=== PATIENT | male | born 1945 | race Caucasian/White ===

== ENCOUNTER 2022-10-22 13:34 | Outpatient (OUT) | payer MEDICARE, SELFPAY ==
[2022-10-22 16:34] LABS: Anion Gap 12.5; BUN Creatinine Ratio 24.2; Calcium 9.2 mg/dL (8.5-10.1); Carbon Dioxide 32.3 mmol/L (21.0-32.0); Chloride 92 mmol/L (98-107); Estimated GFR (African America 24 (>=60); Estimated GFR (Non-African Ame 20 (>=60); Glucose 318 mg/dL (74-106); Potassium 3.8 mmol/L (3.5-5.1); Sodium 133 mmol/L (136-145)
== END 2022-10-22 13:35 | disposition home or self-care (01) ==
DX: N18.4 Chronic kidney disease, stage 4 (severe) (principal)
CPT/HCPCS: 36415; 80048

== ENCOUNTER 2022-11-03 13:05 | Outpatient (REF) | payer MEDICARE, SELFPAY ==
[2022-11-03 13:52] LABS: Bilirubin Urine NEGATIVE (NEGATIVE); Blood Urine NEGATIVE (NEGATIVE); Clarity Urine CLEAR (CLEAR); Color Urine LT. YELLOW (YELLOW); Glucose Urine UA 250 mg/dL (NEGATIVE); Ketones Urine NEGATIVE (NEGATIVE); Leukocyte Esterase Urine NEGATIVE (NEGATIVE); Nitrite Urine NEGATIVE (NEGATIVE); Protein Urine NEGATIVE (NEG/TRACE); Urobilinogen Urine 0.2 EU/dL (0.2-1.0); pH Urine 5.5 (5.0-9.0)
[2022-11-03 13:58] LABS: Creatinine Urine Random 21.04 mg/dL (20.00-300.00); Protein Creatinine Ratio Urine 0.31; Total Protein Urine Random 6.6 mg/dL (<=11.9)
[2022-11-03 13:59] LABS: Hematocrit 46.9 % (42.0-54.0); Hemoglobin 16.1 g/dL (14.0-18.0)
[2022-11-03 14:38] LABS: WBC Urine NONE SEEN #/HPF (NONE SEEN)
[2022-11-03 14:39] LABS: Bacteria Urine NONE SEEN #/HPF (NONE SEEN); Mucus Urine NONE SEEN (NONE SEEN); RBC Urine NONE SEEN #/HPF (0-2); Squamous Epithelial Cell Urine FEW #/LPF (NONE/RARE)
[2022-11-03 14:48] LABS: Albumin Level 3.4 g/dL (3.4-5.0); Anion Gap 10.3; BUN Creatinine Ratio 33.8; Calcium 9.2 mg/dL (8.5-10.1); Carbon Dioxide 41.4 mmol/L (21.0-32.0); Estimated GFR (African America 24 (>=60); Estimated GFR (Non-African Ame 20 (>=60); Glucose 375 mg/dL (74-106); Percent Iron Saturation 20.9 %; Phosphorus 4.9 mg/dL (2.6-4.7); Sodium 132 mmol/L (136-145); Uric Acid 16.4 mg/dL (3.5-7.2)
[2022-11-03 14:56] LABS: Potassium 2.7 mmol/L (3.5-5.1)
[2022-11-03 14:57] LABS: Chloride 83 mmol/L (98-107); Magnesium 3.4 mg/dL (1.8-2.4)
[2022-11-04 10:09] LABS: PTH, Intact 75 pg/mL (15-65)
== END 2022-11-03 13:06 | disposition home or self-care (01) ==
LOC: LAB 13:05
PROVIDERS: Visit Provider Internal Medicine
DX: I12.9 Hypertensive chronic kidney disease with stage 1 through stage 4 chronic kidney disease, or unspecified chronic kidney disease (principal); E11.22 Type 2 diabetes mellitus with diabetic chronic kidney disease; D63.1 Anemia in chronic kidney disease; N18.4 Chronic kidney disease, stage 4 (severe); I50.22 Chronic systolic (congestive) heart failure; N25.81 Secondary hyperparathyroidism of renal origin; E83.42 Hypomagnesemia
CPT/HCPCS: 36415; 80069; 81001; 82306; 82570; 82607; 82728; 82746; 83540; 83550; 83735; 83970; 84156; 84550; 85014; 85018

== ENCOUNTER 2022-11-14 17:27 | Outpatient (REF) | payer MEDICARE, SELFPAY ==
[2022-11-14 18:53] LABS: Anion Gap 13.9; BUN Creatinine Ratio 16.7; Calcium 9.4 mg/dL (8.5-10.1); Carbon Dioxide 24.8 mmol/L (21.0-32.0); Chloride 102 mmol/L (98-107); Estimated GFR (African America 33 (>=60); Estimated GFR (Non-African Ame 27 (>=60); Glucose 293 mg/dL (74-106); Potassium 4.7 mmol/L (3.5-5.1); Sodium 136 mmol/L (136-145)
== END 2022-11-14 17:28 | disposition home or self-care (01) ==
LOC: LAB 17:27
PROVIDERS: Visit Provider Internal Medicine
DX: E87.3 Alkalosis (principal); N18.4 Chronic kidney disease, stage 4 (severe)
CPT/HCPCS: 36415; 80048

== ENCOUNTER 2022-11-28 13:18 | Outpatient (REF) | payer MEDICARE, SELFPAY ==
[2022-11-28 13:51] LABS: Anion Gap 14.4; BUN Creatinine Ratio 15.2; Carbon Dioxide 29.7 mmol/L (21.0-32.0); Chloride 91 mmol/L (98-107); Estimated GFR (African America 25 (>=60); Estimated GFR (Non-African Ame 21 (>=60); Potassium 4.1 mmol/L (3.5-5.1); Sodium 131 mmol/L (136-145)
[2022-11-28 14:37] LABS: Glucose 582 mg/dL (74-106)
== END 2022-11-28 13:19 | disposition home or self-care (01) ==
LOC: LAB 13:18
PROVIDERS: Visit Provider Internal Medicine
DX: Z79.899 Other long term (current) drug therapy (principal)
CPT/HCPCS: 36415; 80048